=== PATIENT | female | born 1945 | race Caucasian/White ===

== ENCOUNTER 2019-12-09 06:01 | Day surgery (SDC) | payer MEDICARE ==
[2019-12-08 13:52] VITALS: BMI 26.6
[~2019-12-09 06:01] MED LIST: EPINEPHrine 0.3 MG in Ophthalmic Irrigation Solution 500 ML IRR SCH
[2019-12-09] MEDS ORDERED: Cyclopentolate 1% Opth Drop 2 ML BOT ONE (06:07)
[2019-12-09] MEDS ORDERED: Phenylephrine 2.5% Ophth Soln 5 ML BOT ONE (06:07)
[2019-12-09] MEDS ORDERED: PROPOFOL 20 ML ONE (06:18)
--- NOTE | 2019-12-09 09:45 | OP ---
DATE OF PROCEDURE: 12/09/2019 PREOPERATIVE DIAGNOSES: Vitreomacular traction and epiretinal membrane, right eye. POSTOPERATIVE DIAGNOSES: Vitreomacular traction and epiretinal membrane, right eye. PROCEDURES PERFORMED: Pars plana vitrectomy and membrane peel, right eye. ANESTHESIA: Local with monitored anesthesia care. PROCEDURE IN DETAIL: The patient was identified in the preoperative holding area where appropriate informed consent for the planned surgical procedure in the right eye had been obtained. The patient was transported to the operative suite where appropriate cardiopulmonary monitoring was established. Local anesthesia was obtained using retrobulbar modified [place]int lid block using 50:50 mixture of 4% lidocaine and 0.75% bupivacaine. The patient was prepped and draped in the usual sterile manner for ophthalmic surgery in the right eye. Lid speculum was placed in the right eye. A 25-gauge trocar was placed in the conjunctiva and sclera supratemporally, inferotemporally, and supranasally. Infusion line was placed inferotemporally. Light pipe and vitreous cutter were inserted to the eye. Core vitrectomy was performed. Posterior hyaloid face was noted to be rigidly attached to the retina. It was peeled up using vacuum suction. Indocyanine green dye was infused on the posterior pole x1, identifying the internal limiting membrane. This was elevated using a membrane scraper and peeled across the macula using the end-gripping forceps. Indirect ophthalmoscopy was used to examine the retina 360 degrees. No holes, breaks, or tears were identified. Prophylactic laser was placed behind the sclerotomies. Trocars removed. The eye was noted to retain pressure well. Retrobulbar Kenalog and subconjunctival Ancef were placed. Antibiotic ointment was placed. Eye was patched and shielded. The patient was taken to postoperative recovery unit in good condition, having suffered no immediate perioperative complications. The patient was instructed to keep patch and shield on, avoid lifting or bending, followup appointment with Dr. Townsend. Job ID: [id number]
[2019-12-09] MEDS ORDERED: Triamcinolone 40 MG/ML VIAL ONE (10:36)
[2019-12-09] MEDS ORDERED: Indocyanine Green 25 MG/10 ML VIAL ONE (10:36)
[2019-12-09] MEDS ORDERED: Bupivacaine PF 0.75% SDV 10 ML ONE (10:36)
[2019-12-09] MEDS ORDERED: Lidocaine 1% PF 5 ML VIAL ONE (10:36)
[2019-12-09] MEDS ORDERED: Lidocaine 4% PF 5 ML AMP ONE (10:36)
[2019-12-09] MEDS ORDERED: CEFAZOLIN 1 GM VIAL ONE (10:36)
[2019-12-09] MEDS ORDERED: Maxitrol 0.1% Opth Oint 3.5 GM TUBE ONE (10:36)
[2019-12-09] MEDS ORDERED: PROPOFOL 200 MG/20 ML VIAL ONE (10:36)
== END 2019-12-09 08:20 | disposition home or self-care (01) ==
LOC: SDC 06:01
PROVIDERS: ATTEND Ophthalmology Retina Specialist
PROC: 08T43ZZ Resection of Right Vitreous, Percutaneous Approach (ICD-10-PCS; principal; 2019-12-09)
PROC: 08NE3ZZ Release Right Retina, Percutaneous Approach (ICD-10-PCS; 2019-12-09)
DX: H35.371 Puckering of macula, right eye (principal); H43.821 Vitreomacular adhesion, right eye
CPT/HCPCS: J0171; J0690; J2001; J2704; J3301; J3490

== ENCOUNTER 2021-04-06 08:50 | Outpatient (CLI) | payer MEDICARE | END 2021-04-06 08:51 | disposition home or self-care (01) | LOC: BICMAMMO 08:50 | PROVIDERS: ATTEND Physician Assistant | DX: N64.4 Mastodynia (principal) | CPT/HCPCS: 76642; 77066; G0279 ==

== ENCOUNTER → 2021-04-16 | Day surgery (SDC) | payer MEDICARE | LOC: BICULT 12:14 | PROVIDERS: ATTEND Physician Assistant | PROC: 0H9T0ZX Drainage of Right Breast, Open Approach, Diagnostic (ICD-10-PCS; principal; 2021-04-16) | DX: C50.511 Malignant neoplasm of lower-outer quadrant of right female breast (principal); N60.01 Solitary cyst of right breast | CPT/HCPCS: 19083; 76942; 88305 ==

== ENCOUNTER 2021-06-01 09:29 | Day surgery (SDC) | payer MEDICARE ==
[2021-05-31 10:51] VITALS: BMI 27.1
[2021-06-01] MEDS ORDERED: Methylene Blue 50 MG/10 ML AMPUL ONE (11:54)
[2021-06-01] MEDS ORDERED: Midazolam HCl 2 mg/2 ml Vial ONE (12:01)
[2021-06-01] MEDS ORDERED: Fentanyl 100 MCG/2 ML VIAL ONE ×3 (12:01→14:02)
[2021-06-01] MEDS ORDERED: Lidocaine 1% PF 5 ML VIAL ONE (12:16)
[2021-06-01] MEDS ORDERED: Dexamethasone 20 MG/5 ML VIAL ONE (12:16)
[2021-06-01] MEDS ORDERED: Ondansetron PF 4 MG/2 ML Vial ONE (12:16)
[2021-06-01] MEDS ORDERED: PROPOFOL 200 MG/20 ML VIAL ONE (12:16)
[2021-06-01] MEDS ORDERED: Sodium Chloride 0.9% 10 ML ONE (12:58)
[2021-06-01] MEDS ORDERED: HYDROcodone/Acetaminophen 5/325 mg Tablet ONE (15:18)
== END 2021-06-01 15:59 | disposition home or self-care (01) ==
LOC: SDC 09:29
PROVIDERS: ATTEND Surgery
PROC: 0HTT0ZZ Resection of Right Breast, Open Approach (ICD-10-PCS; principal; 2021-06-01)
PROC: 07B50ZX Excision of Right Axillary Lymphatic, Open Approach, Diagnostic (ICD-10-PCS; 2021-06-01)
DX: C50.511 Malignant neoplasm of lower-outer quadrant of right female breast (principal); C77.3 Secondary and unspecified malignant neoplasm of axilla and upper limb lymph nodes; E11.9 Type 2 diabetes mellitus without complications; I11.9 Hypertensive heart disease without heart failure; K21.9 Gastro-esophageal reflux disease without esophagitis; Z17.0 Estrogen receptor positive status [ER+]; Z79.84 Long term (current) use of oral hypoglycemic drugs; Z79.899 Other long term (current) drug therapy
CPT/HCPCS: 19303; 38525; 38900; 78195; A9541; Q9968; 88307; 88342; J0690; J1100; J2250; J2405; J2704; J3010